=== PATIENT | female | born 1975 | race American Indian/Alaskan Native ===

== ENCOUNTER 2019-04-12 08:45 | Emergency (ER) | payer MEDICAID ==
--- NOTE | 2019-04-12 09:25 | Emergency Department Report ---
HPI - General Chief Complaint: Medical Clearance Time Seen by Provider: 04/12/19 09:07 - [facility] HPI: Room 24 The patient is a 43-year-old female presented with the chief complaint medication refill. The patient states her psychiatric medications were not returned to her by a psych facility at [place] 2 days ago. Patient states she's been without her psychiatric medications 2 days. Patient is an occasional cough states she's noticed discoloration of her toenails for several days ED Past Medical Hx - Past Medical History Previous Medical History?: Yes Hx Psychiatric Treatment: Yes (bipolar disorder, schizophrenia) Hx Asthma: Yes Additional medical history: Thyroid cancer - Surgical History Additional Surgical History: 3 - Family History Family history: no significant - Social History Smoking Status: Never Smoker Substance Use Type: None (denies illicit drug use) - Medications Home Medications: Home Medications Medication Instructions Recorded Confirmed Last Taken Type Levothyroxine [Synthroid] 25 mcg PO QAM 04/12/19 04/12/19 Unknown History [place] 300 mg PO BID #30 04/12/19 Unknown Rx Mirtazapine [Remeron 15mg TAB] 15 mg PO QHS #30 04/12/19 Unknown Rx Sertraline [Zoloft] 50 mg PO QAM #30 04/12/19 Unknown Rx Ziprasidone HCl [Geodon] 80 mg PO QDAY #30 cap 04/12/19 Unknown Rx ED Review of Systems ROS: Stated complaint: PSYCH MEDS/FOOT CHECKUP Other details as noted in HPI Constitutional: no symptoms reported Eyes: denies: eye pain ENT: denies: throat pain Respiratory: cough Cardiovascular: denies: chest pain Endocrine: no symptoms reported Gastrointestinal: denies: abdominal pain Genitourinary: denies: dysuria Neurological: denies: headache Physical Exam - Physical Exam Vital Signs: Vital Signs 04/12/19 08:53 Temperature 98.2 F Pulse Rate 87 Respiratory 19 Rate Blood Pressure 128/78 O2 Sat by Pulse 100 Oximetry Physical Exam: GENERAL: The patient is well-developed well-nourished female standing in room not appearing to be in acute distress HEENT: Normocephalic. Atraumatic. Extraocular motions are intact. Patient has moist mucous membranes. NECK: Supple. Trachea midline CHEST/LUNGS: Clear to auscultation. There is no respiratory distress noted. HEART/CARDIOVASCULAR: Regular. There is no tachycardia. There is no gallop rub or murmur. ABDOMEN: Abdomen is soft, nontender. Patient has normal bowel sounds. There is no abdominal distention. SKIN: There is no rash. There is no edema. There is no diaphoresis. Onychomycosis present on the toenails NEURO: The patient is awake, alert, and oriented. The patient is cooperative. The patient has normal speech and gait. MUSCULOSKELETAL: There is no evidence of acute injury. ED Course Vital Signs 04/12/19 08:53 Temperature 98.2 F Pulse Rate 87 Respiratory 19 Rate Blood Pressure 128/78 O2 Sat by Pulse 100 Oximetry - Consultations Consultation #1: 04/12/19 11:10 Case discussed with MH celery wrapper Rosalind-patient does not meet any criteria Case discussed with social media project manager-patient has been given available resources ED Medical Decision Making - Lab Data Result diagrams: 04/12/19 09:35 04/12/19 09:35 Laboratory Tests 04/12/19 04/12/19 04/12/19 09:35 09:35 09:35 WBC 7.2 RBC 4.69 Hgb 14.2 Hct 42.3 MCV 90 MCH 30 MCHC 34 RDW 13.8 Plt Count 219 Lymph % (Auto) 23.9 White % (Auto) 6.9 Eos % (Auto) 2.6 Baso % (Auto) 0.6 Lymph # 1.7 White # 0.5 Eos # 0.2 Baso # 0.0 Seg Neutrophils % 66.0 Seg Neutrophils # 4.8 Sodium 139 Potassium 3.7 Chloride 102.2 Carbon Dioxide 21 L Anion Gap 20 BUN 11 Creatinine 0.7 Estimated GFR > 60 BUN/Creatinine Ratio 16 Glucose 112 H Calcium 9.2 HCG, Qual Jovista Plasma/Serum Alcohol < 0.01 04/12/19 04/12/19 09:35 09:35 WBC RBC Hgb Hct MCV MCH MCHC RDW Plt Count Lymph % (Auto) White % (Auto) Eos % (Auto) Baso % (Auto) Lymph # White # Eos # Baso # Seg Neutrophils % Seg Neutrophils # Sodium Potassium Chloride Carbon Dioxide Anion Gap BUN Creatinine Estimated GFR BUN/Creatinine Ratio Glucose Calcium HCG, Qual Negative Jovista 0.1 Plasma/Serum Alcohol - Differential Diagnosis medication refill, onychomycosis Critical care attestation.: If time is entered above; I have spent that time in minutes in the direct care o f this critically ill patient, excluding procedure time. ED Disposition Clinical Impression: Encounter for medication refill, Onychomycosis Disposition: DC- TO HOME OR SELFCARE Is pt being admited?: No Does the pt Need Aspirin: No Condition: Stable Prescriptions: Ziprasidone HCl [Geodon] 80 mg PO QDAY #30 cap [place] 300 mg PO BID #30 Mirtazapine [Remeron 15mg TAB] 15 mg PO QHS #30 Sertraline [Zoloft] 50 mg PO QAM #30 Referrals: PRIMARY CARE, [Primary Care Provider] - 3-5 Days [facility] [Outside] - 3-5 Days Time of Disposition: 11:09
[2019-04-12 09:49] LABS: Basophils % (Auto) 0.6 % (0.0-1.8); Eosinophils # (Auto) 0.2 K/mm3 (0.0-0.4); Eosinophils % (Auto) 2.6 % (0.0-4.3); Hematocrit 42.3 % (30.3-42.9); Hemoglobin 14.2 gm/dl (10.1-14.3); Lymphocytes # (Auto) 1.7 K/mm3 (1.2-5.4); Lymphocytes % (Auto) 23.9 % (13.4-35.0); Mean Corpuscular HGB Conc 34 % (30-34); Mean Corpuscular Volume 90 fl (79-97); Monocytes # (Auto) 0.5 K/mm3 (0.0-0.8); Monocytes % (Auto) 6.9 % (0.0-7.3); Platelet Count 219 K/mm3 (140-440); Red Blood Count 4.69 M/mm3 (3.65-5.03); Red Cell Distribution Width 13.8 % (13.2-15.2)
[2019-04-12 10:01] LABS: BUN/Creatinine Ratio 16; Blood Urea Nitrogen 11 mg/dL (7-17); Calcium 9.2 mg/dL (8.4-10.2); Hemolysis Index 7
[2019-04-12 11:44] VITALS: BP 116/72
== END 2019-04-12 11:43 | disposition home or self-care (01) ==
LOC: ED 08:45
DX: B35.1 Tinea unguium (principal); Z76.0 Encounter for issue of repeat prescription; F31.9 Bipolar disorder, unspecified; F20.9 Schizophrenia, unspecified; J45.909 Unspecified asthma, uncomplicated; Z88.1 Allergy status to other antibiotic agents; Z79.899 Other long term (current) drug therapy
CPT/HCPCS: 36415; 80048; 80178; 80320; 84703; 85025; 99283; G0480

== ENCOUNTER 2019-04-13 23:00 | Emergency (ER) | payer MEDICAID ==
--- NOTE | 2019-04-13 23:50 | XRay Report ---
CHEST 1 VIEW INDICATION / CLINICAL INFORMATION: Chest Pain. COMPARISON: None available. FINDINGS: SUPPORT DEVICES: None. HEART / MEDIASTINUM: No significant abnormality. LUNGS / PLEURA: No significant pulmonary or pleural abnormality. No pneumothorax. ADDITIONAL FINDINGS: No significant additional findings. IMPRESSION: 1. No acute findings. Signer Name: Primo Justice MD Signed: 04/13/2019 11:46 PM Workstation Name: [id number]
[2019-04-14 00:48] LABS: Basophils # (Auto) 0.1 K/mm3 (0.0-0.1); Basophils % (Auto) 0.7 % (0.0-1.8); Eosinophils # (Auto) 0.2 K/mm3 (0.0-0.4); Eosinophils % (Auto) 2.5 % (0.0-4.3); Hematocrit 39.4 % (30.3-42.9); Hemoglobin 13.2 gm/dl (10.1-14.3); Lymphocytes # (Auto) 2.4 K/mm3 (1.2-5.4); Lymphocytes % (Auto) 24.9 % (13.4-35.0); Mean Corpuscular HGB Conc 34 % (30-34); Mean Corpuscular Volume 90 fl (79-97); Monocytes # (Auto) 0.7 K/mm3 (0.0-0.8); Monocytes % (Auto) 7.1 % (0.0-7.3); Platelet Count 205 K/mm3 (140-440); Red Blood Count 4.37 M/mm3 (3.65-5.03); Red Cell Distribution Width 13.8 % (13.2-15.2)
[2019-04-14 00:57] LABS: BUN/Creatinine Ratio 15; Blood Urea Nitrogen 9 mg/dL (7-17); Calcium 8.7 mg/dL (8.4-10.2); Hemolysis Index 4
[2019-04-14] MEDS ORDERED: IBUPROFEN PO ONE (02:38)
[2019-04-14] MEDS ORDERED: PROVENTIL IH ONE (02:38)
--- NOTE | 2019-04-14 03:12 | Emergency Department Report ---
ED Chest Pain HPI - General Chief Complaint: Chest Pain Stated Complaint: THYROID CANCER Time Seen by Provider: 04/14/19 02:32 Source: patient Mode of arrival: Ambulatory Limitations: No Limitations - History of Present Illness Initial Comments: Patient is a 43-year-old -[place] female with history of bronchitis who presents for chest pain real-time with cough shortness of breath states some nocturnal wheezing. Primary complaint is runny nose. There is no dizziness, no lightheadedness, no nausea / vomiting, no fever or chills. pain is 2/10 exacerbated by deep breathing. Pain is relieved by nothing tried. pt states out of medications. MD Complaint: chest pain Onset/Timin -: week(s) Pain Location: right chest Pain Radiation: none Severity: moderate Severity scale (0 -10): 6 Quality: sharp Consistency: intermittent Improves With: nothing Worsens With: nothing re: denies: nausea, vomting, diaphoresis, dyspnea, sense of impending doom Other Symptoms: cough. denies: fever, syncope, rash, acid taste in mouth, leg swelling, palpitations, burping Treatments Prior to Arrival: none Aspirin use within the Past 7 Days: (0) No - Related Data On Oral Contraceptives: No Home Medications Medication Instructions Recorded Confirmed Last Taken Levothyroxine [Synthroid] 25 mcg PO QAM 04/12/19 04/12/19 Unknown Previous Rx's Medication Instructions Recorded Last Taken Type Benzonatate [Tessalon Perles] 100 mg PO Q8HR #30 capsule 04/12/19 Unknown Rx [place] 300 mg PO BID #30 04/12/19 Unknown Rx Mirtazapine [Remeron 15mg TAB] 15 mg PO QHS #30 04/12/19 Unknown Rx Sertraline [Zoloft] 50 mg PO QAM #30 04/12/19 Unknown Rx Ziprasidone HCl [Geodon] 80 mg PO QDAY #30 cap 04/12/19 Unknown Rx ALBUTEROL Inhaler (OR & NICU) 2 puff IH QID PRN #1 inhalation 04/14/19 Unknown Rx [ProAir HFA Inhaler] Naproxen [Naprosyn TAB] 500 mg PO BID PRN #30 tablet 04/14/19 Unknown Rx Allergies Allergy/AdvReac Type Severity Reaction Status Date / Time clindamycin [From Cleocin] Allergy Swelling Verified 04/12/19 08:56 Heart Score - HEART Score History: Slightly suspicious EKG: Normal Age: < 45 Risk factors: No known risk factors Troponin: < normal limit HEART Score: 0 ED Review of Systems ROS: Stated complaint: THYROID CANCER Other details as noted in HPI Constitutional: denies: chills, fever Eyes: denies: eye pain, eye discharge, vision change ENT: congestion. denies: ear pain, throat pain, epistaxis Respiratory: cough. denies: shortness of breath Cardiovascular: chest pain. denies: palpitations, dyspnea on exertion, orthopnea, edema, syncope, paroxysmal nocturnal dyspnea Endocrine: no symptoms reported Gastrointestinal: denies: abdominal pain, nausea, vomiting, diarrhea Genitourinary: denies: urgency, dysuria, discharge Musculoskeletal: denies: back pain, joint swelling, arthralgia, myalgia Skin: denies: rash, lesions Neurological: denies: headache, weakness, paresthesias Psychiatric: denies: anxiety, depression Hematological/Lymphatic: denies: easy bleeding, easy bruising ED Past Medical Hx - Past Medical History Previous Medical History?: Yes Hx of Cancer: Yes (thyroid) Hx Psychiatric Treatment: Yes (bipolar disorder, schizophrenia) Hx Asthma: Yes Additional medical history: Thyroid cancer - Surgical History Past Surgical History?: Yes Additional Surgical History: 3, hysterectomy - Social History Smoking Status: Never Smoker Substance Use Type: None - Medications Home Medications: Home Medications Medication Instructions Recorded Confirmed Last Taken Type Benzonatate [Tessalon Perles] 100 mg PO Q8HR #30 capsule 04/12/19 Unknown Rx Levothyroxine [Synthroid] 25 mcg PO QAM 04/12/19 04/12/19 Unknown History [place] 300 mg PO BID #30 04/12/19 Unknown Rx Mirtazapine [Remeron 15mg TAB] 15 mg PO QHS #30 04/12/19 Unknown Rx Sertraline [Zoloft] 50 mg PO QAM #30 04/12/19 Unknown Rx Ziprasidone HCl [Geodon] 80 mg PO QDAY #30 cap 04/12/19 Unknown Rx ALBUTEROL Inhaler (OR & NICU) 2 puff IH QID PRN #1 inhalation 04/14/19 Unknown Rx [ProAir HFA Inhaler] Naproxen [Naprosyn TAB] 500 mg PO BID PRN #30 tablet 04/14/19 Unknown Rx ED Physical Exam - General Limitations: No Limitations (wall) General appearance: alert, in no apparent distress - Head Head exam: Present: atraumatic, normocephalic - Eye Eye exam: Present: normal appearance, PERRL, EOMI Pupils: Present: normal accommodation - ENT ENT exam: Present: normal orophraynx (clear post nasal drip ), mucous membranes moist, TM's normal bilaterally, normal external ear exam - Neck Neck exam: Present: normal inspection, full ROM. Absent: tenderness, meningismus, lymphadenopathy, thyromegaly - Respiratory Respiratory exam: Present: normal lung sounds bilaterally. Absent: respiratory distress, wheezes, stridor, chest wall tenderness - Cardiovascular Cardiovascular Exam: Present: regular rate, normal rhythm, normal heart sounds. Absent: systolic murmur, diastolic murmur, rubs, gallop - GI/Abdominal GI/Abdominal exam: Present: soft, normal bowel sounds. Absent: distended, tenderness, bruit, hernia - Rectal Rectal exam: Present: deferred - Extremities Exam Extremities exam: Present: normal inspection, full ROM, normal capillary refill. Absent: tenderness, pedal edema, joint swelling, calf tenderness - Back Exam Back exam: Present: normal inspection, full ROM. Absent: tenderness, CVA tenderness (R), CVA tenderness (L), muscle spasm, paraspinal tenderness, rash noted - Neurological Exam Neurological exam: Present: alert, oriented X3, CN II-XII intact, normal gait, reflexes normal. Absent: motor sensory deficit - Psychiatric Psychiatric exam: Present: normal affect, normal mood - Skin Skin exam: Present: warm, dry, intact, normal color. Absent: rash ED Course Vital Signs 04/13/19 23:03 Temperature 98.3 F Pulse Rate 104 H Respiratory 18 Rate Blood Pressure 123/62 O2 Sat by Pulse 96 Oximetry PILAR score - Pilar Score Age > 65: (0) No Aspirin use within the Past 7 Days: (0) No 3 or more CAD Risk Factors: (0) No 2 or more Angina events in past 24 hrs: (0) No Elevated Cardiac Markers: (0) No ST Deviation Greater than 0.5mm: (0) No ED Medical Decision Making - Lab Data Result diagrams: 04/14/19 00:05 04/14/19 00:05 Labs 04/14/19 04/14/19 00:05 00:05 WBC 9.6 RBC 4.37 Hgb 13.2 Hct 39.4 MCV 90 MCH 30 MCHC 34 RDW 13.8 Plt Count 205 Lymph % (Auto) 24.9 [place] % (Auto) 7.1 Eos % (Auto) 2.5 Baso % (Auto) 0.7 Lymph # 2.4 [place] # 0.7 Eos # 0.2 Baso # 0.1 Seg Neutrophils % 64.8 Seg Neutrophils # 6.2 Sodium 140 Potassium 3.8 Chloride 103.6 Carbon Dioxide 24 Anion Gap 16 BUN 9 Creatinine 0.6 L Estimated GFR > 60 BUN/Creatinine Ratio 15 Glucose 110 H Calcium 8.7 Troponin T < 0.010 - EKG Data EKG shows normal: sinus rhythm, axis, intervals, QRS complexes, ST-T waves Rate: normal - EKG Data Interpretation: normal EKG (EKG interp be ed attending, NSR, NO ST Elevated DC.) - Radiology Data Radiology results: report reviewed, image reviewed chest xray normal no infiltrates no opacities. - Medical Decision Making chest wall pain with cough, cxr: normal, no inifiltrates no opacities. plan dc to home with rx for Naproxen prn, albuterol inhaler prn, pt verbalized agreement and understanding of discharge plan. pt do home with nad at this time. Critical care attestation.: If time is entered above; I have spent that time in minutes in the direct care of this critically ill patient, excluding procedure time. ED Disposition Clinical Impression: Chest wall pain, Bronchitis Disposition: DC-01 TO HOME OR SELFCARE Is pt being admited?: No Does the pt Need Aspirin: No Condition: Stable Instructions: Chest Pain (ED), Chronic Bronchitis (ED) Prescriptions: Naproxen [Naprosyn TAB] 500 mg PO BID PRN #30 tablet PRN Reason: pain ALBUTEROL Inhaler (OR & NICU) [ProAir HFA Inhaler] 2 puff IH QID PRN #1 inhalation PRN Reason: Shortness Of Breath Referrals: [facility] [Outside] - 3-5 Days Forms: Work/School Release Form(ED) Time of Disposition: 03:23
[2019-04-14 04:38] VITALS: BP 112/68
== END 2019-04-14 03:45 | disposition home or self-care (01) ==
LOC: ED 23:00
DX: J40 Bronchitis, not specified as acute or chronic (principal); J45.909 Unspecified asthma, uncomplicated; F31.9 Bipolar disorder, unspecified; F20.9 Schizophrenia, unspecified; Z85.850 Personal history of malignant neoplasm of thyroid; Z90.710 Acquired absence of both cervix and uterus; Z79.899 Other long term (current) drug therapy; Z88.1 Allergy status to other antibiotic agents
CPT/HCPCS: 36415; 71045; 80048; 84484; 85025; 93005; 93010; 94640; 94644

== ENCOUNTER 2022-02-28 15:35 | Emergency (ER) | payer MEDICAID ==
[2022-02-28 17:35] VITALS: BP 134/74
--- NOTE | 2022-03-01 03:35 | Emergency Department Report ---
ED General Adult HPI - General Chief complaint: Extremity Injury, Lower Stated complaint: SPIDER BITE Time Seen by Provider: 03/01/22 03:24 Source: patient Mode of arrival: Ambulatory Limitations: No Limitations - History of Present Illness Initial comments: Patient presents stating that she noticed a spider in the [place] in her home near her bedroom and someone in the home killed it. The next day she noticed an area of redness on her left morales that is tender to touch. She is concerned that the spider bit her. She feels fine otherwise but states she has had a brown recluse bite in the past and she is concerned for same. Onset/Timin -: days(s) Location: left (Morales) Radiation: non-radiation Severity scale (0 -10): 4 Quality: burning Consistency: constant Improves with: none Worsens with: none Associated Symptoms: denies: confusion, chest pain, cough, diaphoresis, fever/chills, headaches, loss of appetite, malaise, nausea/vomiting, rash, seizure, shortness of breath, syncope, weakness Treatments Prior to Arrival: none - Related Data Home Medications Medication Instructions Recorded Confirmed Last Taken Levothyroxine [Synthroid] 25 mcg PO QAM 04/12/19 04/12/19 Unknown Previous Rx's Medication Instructions Recorded Last Taken Type Benzonatate [Tessalon Perles] 100 mg PO Q8HR #30 capsule 04/12/19 Unknown Rx [place] 300 mg PO BID #30 04/12/19 Unknown Rx Mirtazapine [Remeron 15mg TAB] 15 mg PO QHS #30 04/12/19 Unknown Rx Sertraline [Zoloft] 50 mg PO QAM #30 04/12/19 Unknown Rx Ziprasidone HCl [Geodon] 80 mg PO QDAY #30 cap 04/12/19 Unknown Rx Albuterol Mdi (or & Nicu Only) 2 puff IH QID PRN #1 inhalation 04/14/19 Unknown Rx [ProAir HFA Inhaler] Naproxen [Naprosyn TAB] 500 mg PO BID PRN #30 tablet 04/14/19 Unknown Rx cephALEXin [Keflex] 500 mg PO Q8HR 7 Days #21 cap 03/01/22 Unknown Rx Allergies Allergy/AdvReac Type Severity Reaction Status Date / Time aripiprazole [From Abilify] Allergy Unknown Verified 02/28/22 17:32 clindamycin [From Cleocin] Allergy Swelling Verified 02/28/22 17:31 risperidone [From Risperdal] Allergy Unknown Verified 02/28/22 17:32 shellfish derived Allergy Vomiting Verified 02/28/22 17:32 CATFISH Allergy Vomiting Uncoded 02/28/22 17:32 ED Review of Systems ROS: Stated complaint: SPIDER BITE Other details as noted in HPI Comment: All other systems reviewed and negative Constitutional: denies: chills, fever Eyes: denies: eye discharge ENT: denies: throat pain, congestion Respiratory: denies: cough, shortness of breath Cardiovascular: denies: chest pain, palpitations, edema Endocrine: denies: unexplained weight gain, unexplained weight loss Gastrointestinal: denies: abdominal pain, nausea, vomiting, diarrhea, constipation Genitourinary: denies: urgency, dysuria, frequency, hematuria Musculoskeletal: back pain Skin: denies: rash, lesions, change in color Neurological: denies: headache, weakness, numbness, paresthesias, confusion, abnormal gait, vertigo Psychiatric: denies: anxiety, depression Hematological/Lymphatic: denies: easy bleeding, easy bruising ED Past Medical Hx - Past Medical History Hx Psychiatric Treatment: Yes (bipolar disorder, schizophrenia) Hx Asthma: Yes Additional medical history: Thyroid cancer - Surgical History Additional Surgical History: 3, hysterectomy - Social History Smoking Status: Never Smoker Substance Use Type: None - Medications Home Medications: Home Medications Medication Instructions Recorded Confirmed Last Taken Type Benzonatate [Tessalon Perles] 100 mg PO Q8HR #30 capsule 04/12/19 Unknown Rx Levothyroxine [Synthroid] 25 mcg PO QAM 04/12/19 04/12/19 Unknown History [place] 300 mg PO BID #30 04/12/19 Unknown Rx Mirtazapine [Remeron 15mg TAB] 15 mg PO QHS #30 04/12/19 Unknown Rx Sertraline [Zoloft] 50 mg PO QAM #30 04/12/19 Unknown Rx Ziprasidone HCl [Geodon] 80 mg PO QDAY #30 cap 04/12/19 Unknown Rx Albuterol Mdi (or & Nicu Only) 2 puff IH QID PRN #1 inhalation 04/14/19 Unknown Rx [ProAir HFA Inhaler] Naproxen [Naprosyn TAB] 500 mg PO BID PRN #30 tablet 04/14/19 Unknown Rx cephALEXin [Keflex] 500 mg PO Q8HR 7 Days #21 cap 03/01/22 Unknown Rx ED Physical Exam - General Limitations: No Limitations General appearance: alert, in no apparent distress - Head Head exam: Present: atraumatic, normocephalic - Eye Eye exam: Absent: scleral icterus, conjunctival injection - ENT ENT exam: Present: mucous membranes moist - Neck Neck exam: Present: normal inspection, full ROM - Respiratory Respiratory exam: Present: normal lung sounds bilaterally. Absent: respiratory distress, wheezes, rales, rhonchi - Cardiovascular Cardiovascular Exam: Present: regular rate, normal rhythm, normal heart sounds - GI/Abdominal GI/Abdominal exam: Present: soft. Absent: distended, tenderness - Extremities Exam Extremities exam: Present: normal capillary refill, other (Small localized area of erythema. She does have moderate varicosities but this is remote from any of the obvious varicose veins. No palpable cord or tenderness of the varicosities.). Absent: pedal edema, joint swelling, calf tenderness - Neurological Exam Neurological exam: Present: alert, oriented X3, CN II-XII intact, normal gait - Psychiatric Psychiatric exam: Present: anxious (Mildly due to feeling like she has a brown recluse spider bite) - Skin Skin exam: Present: warm, dry, erythema (Small area of erythema left morales. No lymphangitis. Minimal tenderness) ED Course Vital Signs 02/28/22 17:33 Temperature 97.7 F Pulse Rate 78 Respiratory 20 Rate Blood Pressure 134/74 [Right] O2 Sat by Pulse 100 Oximetry ED Medical Decision Making - Medical Decision Making Patient is very insistent that this is a spider bite because she saw a spider in her home and the next day noticed the redness. Possibly insect bite possibly spider bite but certainly not highly concerning at this time given the symptoms have been present for 3 days and it is just mild erythema. - Differential Diagnosis Insect bite. Spider bite. Cellulitis. Critical care attestation.: If time is entered above; I have spent that time in minutes in the direct care of this critically ill patient, excluding procedure time. ED Disposition Clinical Impression: Cellulitis, leg Disposition: HOME / SELF CARE / HOMELESS Is pt being admited?: No Condition: Stable Instructions: Cellulitis, Adult Additional Instructions: Warm compresses to the area follow-up with primary care doctor antibiotics Prescriptions: cephALEXin [Keflex] 500 mg PO Q8HR 7 Days #21 cap Referrals: FARHAN HAWKINS MD [Other] - 3-5 Days Time of Disposition: 03:40
== END 2022-03-01 03:53 | disposition home or self-care (01) ==
LOC: ED 15:35
DX: L03.116 Cellulitis of left lower limb (principal); F31.9 Bipolar disorder, unspecified; J45.909 Unspecified asthma, uncomplicated; Z91.013 Allergy to seafood; Z91.09 Other allergy status, other than to drugs and biological substances
CPT/HCPCS: 99282